=== PATIENT | male | born 1950 | race Caucasian/White ===

== ENCOUNTER → 2017-11-25 14:07 | Outpatient (CLI) | payer BC, SELFPAY ==
[2017-11-25 16:12] LABS: PSA,Total- Diagnostic < 0.01 ng/mL (0.0-4.0)
== END ==
PROVIDERS: Family Provider Family Medicine; PCP Family Medicine; Referring Provider Urology; Visit Provider Urology
DX: C61 Malignant neoplasm of prostate (principal)
CPT/HCPCS: 36415; 84153

== ENCOUNTER → 2020-02-22 17:04 | Outpatient (CLI) | payer BC, MEDICARE, SELFPAY ==
[2017-01-23 06:28] VITALS: BMI 32.7
--- NOTE | 2020-02-22 17:14 | CT_ITS ---
STUDY: CT ABDOMEN AND PELVIS WITHOUT CONTRAST REASON FOR EXAM: Male, 69 years old. RLQ PAIN RADIATION DOSAGE (If Supplied By Facility): CTDIvol = ( 14.70 ) mGy, DLP = ( 831.35 ) mGycm TECHNIQUE: Transaxial images were obtained from the dome of the diaphragm to the symphysis pubis without oral contrast, and without intravenous contrast. Sagittal and coronal images were reconstructed. Individualized dose optimization techniques were used for this CT. COMPARISON: None. FINDINGS: The visualized lung bases are unremarkable aside from a stable pneumatocele in the right lung base. The visualized portions of the heart are within normal limits. Liver is unremarkable aside from a stable 1 cm likely hemangioma or cyst in the right lower lobe Normal gallbladder and extrahepatic biliary system. Normal spleen. Normal pancreas. Normal bilateral adrenal glands. Normal right kidney. Normal left kidney. Normal visualized stomach. Normal small intestine. Normal colon. The proximal half of the appendix is within normal range however, the distal appendix seen on axial images 144 to 158 is thick walled and fluid distended measuring 1.8 cm in thickness with periappendiceal inflammation. No demonstrated abscess there may be a few bubbles of microperforation. It is also possible that this may represent an acute diverticulitis though no significant diverticular disease is noted in the colon. Normal abdominal aorta. Normal inferior vena cava. Normal retroperitoneum. Normal urinary bladder. Normal abdominal wall. There are diffuse degenerative changes of the visualized lumbar spine, and pelvis CT/Abdomen/Pelvis without Cont IMPRESSION: Acute appendicitis suspected involving the distal half of the appendix. There is periappendiceal inflammation and a few bubbles of microperforation are suspected Stable hemangioma or cyst in the right lobe of the liver Study was ordered as an outpatient. However, the patient was not sent home by the CT techs who were then called by me to discuss the findings. The covering SPLINE ROLLING MACHINE JOB SETTER was then called by the CT techs with the report. N.B. : The above information has been verbally conveyed by Praful Perez MD to Teresa Carmona NP, on 02/22/2020 18:41:36 (ET). Electronically Signed: Praful Perez MD at 18:44 EST , Service support ,
== END ==
PROVIDERS: PCP Family Medicine; Referring Provider Nurse Practitioner Adult Health; Visit Provider Nurse Practitioner Adult Health
DX: R10.9 Unspecified abdominal pain (principal); R31.29 Other microscopic hematuria; Z87.442 Personal history of urinary calculi
CPT/HCPCS: 74176

== ENCOUNTER 2020-02-22 18:49 | Observation (INO) | payer MEDICARE, BC, SELFPAY ==
[2020-02-22] VITALS (8 sets, daily range): BP systolic 116–155; BP diastolic 68–87; PULSE 76–99; RESP 16–18; TEMP 36.1–37.3; O2SAT 94–100; BMI 32.5; BMI 29.2
[2020-02-22] MEDS: 0.9% Normal Saline 1,000 ML 125 ML IV (18:55)
--- NOTE | 2020-02-22 18:55 | EKG12_ITS ---
Test Reason : ABD PAIN Blood Pressure : / mmHG Vent. Rate : 093 BPM Atrial Rate : 093 BPM P-R Int : 162 ms QRS Dur : 104 ms QT Int : 344 ms P-R-T Axes : 049 103 054 degrees QTc Int : 427 ms Normal sinus rhythm Incomplete right bundle branch block Nonspecific ST abnormality Abnormal ECG Confirmed by KAREN LEWIS, FAZAL ([id number]), editor department CHRIS STANTON ([id number]) on 02/24/2020 9:41:32 AM Referred By: PAZ Confirmed By:FAZAL JONES MD
--- NOTE | 2020-02-22 18:58 | ED.VIS.GEN ---
History of Present Illness Chief Complaint: Abd Pain Informant: Patient Onset: Days Context: Gradual Onset Timing: Continuous Current Severity: Moderate Maximum Severity: Moderate Narrative: Patient is a 69-year-old male with medical history significant for prior prostate cancer, status post robotic prostatectomy in 2017, who presents to the emergency department abdominal pain. Patient states that he thought that he had a kidney stone. His symptoms began on Saturday. He states he had some diffuse abdominal pain that seemed to migrate to his right lower quadrant. He did have some chills on the first day, but nothing since. He had an outpatient CT done today. This was consistent with evidence of appendicitis. This patient was sent here for further evaluation. He is not on anticoagulants. He denies any other systemic symptoms. He states that aside from the pain, is otherwise been in his normal state of health. Prior similar symptoms: No Recent Illness/Hospitalization: No Past Medical History - Allergies and Home Meds Allergies/Adverse Reactions: Allergies Penicillins Allergy (Verified 12/26/16 14:51) Unknown Sulfa (Sulfonamide Antibiotics) Allergy (Verified 12/26/16 14:51) Unknown Primary Care Physician: Francisco Gee MD [Primary Care Provider] - Prior records reviewed: Yes Past Medical History: - - History of prostate cancer Surgical History: - - Prostatectomy Lives: With Family Smoking Status: Former smoker Review of Systems General: Denies: Chills, Fever, Sweats Eyes: Denies: Visual changes - bilaterally, Diplopia ENT: Denies: Rhinorrhea, Sore throat Cardiovascular: Denies: Chest pain, Palpitations Respiratory: Denies: Dyspnea, Cough, Dyspnea on exertion Gastrointestinal: Reports: Abdominal pain. Denies: Nausea, Vomiting, Diarrhea, Melena, Hematochezia Genitourinary: Denies: Dysuria, Hematuria, Frequency Musculoskeletal: Denies: Back pain, Extremity Pain Skin: Denies: Rash, Wounds Neurological: Denies: Headache, Weakness, Numbness Physical Exam Vital Signs/Narrative: Vital Signs Temp Pulse Resp BP Pulse Ox 02/22/20 18:51 97 F L 99 16 155/85 H 100 02/22/20 18:50 97 F L 99 16 155/85 H 100 Inital Vital Signs reviewed: Yes General: Well nourished, Well developed, No Acute Distress Head: Normocephalic, Atraumatic Eyes: Perrl, EOMI ENT: Moist mucous membranes, No rhinorrhea Neck: Supple, Nontender Cardiovascular: Regular rate, Regular rhythm, No murmurs Respiratory: No distress, CTA bilaterally, Chest nontender Abdomen: Soft, Nondistended, Normal bowel sounds, Tender. Negative for: Guarding, Rebound tenderness Back: Nontender, Normal Inspection Extremities: Nontender, No edema Skin: Normal color, No rash Neurological: Alert, Oriented x3, Cranial nerves II-XII grossly intact, Normal Strength, Normal Sensation Psychological: Normal affect, Normal Mood Diagnostic/Tx/Re-eval - Rhythm Strip Rhythm Strip: Sinus Rhythm Rate: 80 Ectopy: None - EKG Initial EKG Interpretation: Sinus Rhythm, No Acute Injury Pattern - Medical Decision Making The patient presents with an outpatient CT does does confirm acute appendicitis. I discussed this immediately with surgery. Metabolic work-up was pursued. The patient was covered with broad-spectrum antibiotics. The plan is for him to go to the OR for appendectomy. The patient is agreeable with this plan. Impression 1. Acute appendicitis ED Disposition - Plan for ED Patient: Referrals: Francisco Gee MD [Primary Care Provider] -
--- NOTE | 2020-02-22 19:26 | RAD_ITS ---
STUDY: X-RAY CHEST REASON FOR EXAM: Male, 69 years old. PRE-OP APPY. TECHNIQUE: Single AP portable view of the chest. COMPARISON: None. FINDINGS: The lungs are clear and expanded. There is no demonstrated pleural abnormality. Normal size heart. Normal mediastinum and mariangel. Normal visualized pulmonary arteries. Normal visualized aortic arch and descending thoracic aorta. There are diffuse degenerative changes of the visualized thoracic spine. Normal visualized ribs, clavicles, and shoulders. There is no demonstrated abnormality of the visualized soft tissue structures of the upper abdomen. RAD/Chest 1 View (Portable) IMPRESSION: No acute pulmonary process Electronically Signed: Praful Perez MD at 20:26 EST , Service support ,
--- NOTE | 2020-02-22 19:28 | HP.PCM_ITS ---
History of Present Illness Date of Admission: 02/22/20 The patient is a 69 year old M presented to the ER after having outpatient CT which showed acute appendicitis. Patient states last Saturday he had some right-sided abdominal pain which did go away as well as on Saturday. However last night and initially started periumbilical and then went to the right lower quadrant patient did have an outpatient CT ordered by his urologist as he has had a previous history of a kidney stone. Current lab work is pending. Patient last ate at 11:00 today. Past Medical History Allergies Penicillins Allergy (Verified 12/26/16 14:51) Unknown Sulfa (Sulfonamide Antibiotics) Allergy (Verified 12/26/16 14:51) Unknown Home Medications: Ambulatory Orders Medication Instructions Recorded Ascorbic Acid [Vitamin C] 2,000 mg PO DAILY 12/26/16 Loratadine [Claritin] 10 mg PO DAILY 12/26/16 Surgical History: - - Robotic prostatectomy 2016, colonoscopy in 2012 - Psychiatric History: No pertinent psych hx Lives: With Family Smoking Status: Former smoker Alcohol: None Drugs: None - *Family History Maternal History Items: No pertinent history VTE Information - Inpt Only VTE Present on Admission: Yes VTE Mechan Device Prophylaxis: SCD's - Physical Exam Vitals/I&O's: Vital Signs Temp Pulse Resp BP Pulse Ox 97 F L 99 16 155/85 H 100 02/22/20 18:51 02/22/20 18:51 02/22/20 18:51 02/22/20 18:51 02/22/20 18:51 Weight: 247 lb Body Mass Index (BMI) 32.5 General: Alert, Oriented x3, Cooperative, No apparent distress HEENT: Atraumatic Lungs: Normal air movement Cardiovascular: Regular rate Abdomen: Soft, Non-Distended, Tender - Right lower quadrant, no peritoneal signs Extremities: No clubbing, No cyanosis, No edema Neurological: Cranial nerves II-XII grossly intact Psych/Mental Status: Normal Affect Laboratory Results 02/22/20 19:15: WBC Pending, RBC Pending, Hgb Pending, Hct Pending, MCV Pending, MCH Pending, MCHC Pending, RDW Std Deviation Pending, RDW Coeff of Latha Pending, Plt Count Pending, Neut % (Auto) Pending, Absolute Neuts (auto) Pending 02/22/20 19:15: Sodium Pending, Potassium Pending, Chloride Pending, Carbon Dioxide Pending, Anion Gap Pending, BUN Pending, Creatinine Pending, Est GFR (MDRD) Af Amer Pending, Est GFR (MDRD) Non-Af Pending, BUN/Creatinine Ratio Pending, Glucose Pending, Calcium Pending, Total Bilirubin Pending, AST Pending, ALT Pending, Alkaline Phosphatase Pending, Total Protein Pending, Albumin Pending 02/22/20 19:15: Blood Type Pending, Antibody Screen Pending Current Medications Sodium Chloride () 1,000 mls @ 125 mls/hr IV .Q8H KAYLI Ciprofloxacin (Cipro) 400 mg in 200 mls @ 200 mls/hr IV X1 ONE Stop: 02/22/20 20:00 Metronidazole (Flagyl) 500 mg in 100 mls @ 100 mls/hr IV X1 ONE Stop: 02/22/20 20:00 Assessment/Plan All Active Problems Prostate cancer (Acute) 69-year-old male with acute appendicitis 1. Discussed procedure laparoscopic appendectomy, possible open, possible bowel resection along with the risk but not limited to bleeding, infection/abscess, injury to another organ (small bowel, colon, etc.), adhesion, hernia at incision sites, and anesthesia. Patient no further questions this time. Patient did get Cipro and Flagyl IV in the ER. Covid test is pending. Dayana Anderson M.D. Pager: [phone] [facility] [address] [place] [address], [address] [place] [address] Office: [phone]
--- NOTE | 2020-02-22 19:28 | ED.RN ---
PT TO OR PRIOR TO MEDS ADMIN. ED STAFF TOOK ATB TO OR.
[2020-02-22] MEDS: Ciprofloxacin 400 MG/200 ML BAG 200 MG IV (19:36)
[2020-02-22 19:39] LABS: Absolute Lymphocyte Count 1.15 X10^3/uL (0.83-4.51); Absolute Neutrophil Count 8.2 X10^3/uL (2.0-7.7); Basophil# 0.02 X10^3/uL; Basophil% 0.2 % (0-1); Eosinophil# 0.05 X10^3/uL; Eosinophils% 0.5 % (0-5); Lymphocyte # 1.15 X10^3/ul (4.0); Lymphocyte % 11.2 % (19-41); Mean Corp Hgb Conc 31.9 g/dL (32-36); Mean Corpuscular Volume 81.3 fL (80-94); Mean Platelet Vol. 8.7 fl (6.2-12.0); Monocyte% 7.8 % (0-10); NRBC Flagged by Analyzer 0 % (0-5); Neutrophil # 8.21 X10^3/uL (2.7-7.7); Platelet Count 204 K/mm3 (150-450); RBC Distribution Width CV 13.2 % (11.6-14.6); RBC Distribution Width SD 38.5 fl (35.1-43.9); Red Blood Count 5.78 M/mm3 (4.6-6.2); White Blood Count 10.3 K/mm3 (4.4-11.0)
[2020-02-22 19:54] LABS: ALB/GLOB Ratio 1.1 RATIO (0.9-2.4); AST(SGOT) 5 U/L (15-37); Alanine Aminotransfer ALT/SGPT 16 U/L (16-61); Albumin, Serum 3.7 g/dL (3.2-5.0); Alkaline Phosphatase 79 U/L (45-117); Anion Gap 7 (5-15); BUN 13 mg/dL (7-18); BUN/Creat Ratio 11.9 RATIO (10-20); Calcium,Total 8.8 mg/dL (8.5-10.1); Chloride 105 mmol/L (98-107); Creatinine, Serum 1.09 mg/dL (0.70-1.30); EST Glomerular Filtration Rate 71 mL/min (>60); Est Glom Filt Rate - Afr Amer 86 mL/min (>60); Estimated Creatinine Clearance 72.28 ml/min; Globulin 3.3 g/dL (2.2-4.2); Glucose 110 mg/dL (74-106); Potassium 3.4 mmol/L (3.5-5.1); Sodium Level 139 mmol/L (136-145)
[2020-02-22] MEDS: metroNIDAZOLE 500 MG/100 ML BAG 100 MG IV (20:29)
[2020-02-22] MEDS: Lactated Ringers 1,000 ML 100 ML IV (21:00)
[2020-02-22] MEDS: Bupiv/Epi 0.5% Mpf 30 ML Vial (21:30)
--- NOTE | 2020-02-22 21:36 | PCM.OPRPT ---
Report of Operation Date of Procedure: 02/22/20 Pre-Operative Diagnosis: acute appendicitis Post-Operative Diagnosis: acute perforated appendicitis Surgery/Procedure Performed:: laparoscopic appendectomy Type of Anesthesia:: General/Supplemental Anesthesiologist: Yovany Downey Special Medications: cipro/flagyl Specimen's removed: appendix Estimated Blood Loss (mL): 10 cc Fluids Replaced: 1.200 Liter Description of Procedure: Indications: 69-year-old male presented to the ER with new right lower quadrant pain last night. On workup he was found to have acute appendicitis on CT. Patient was started on antibiotics in the ER for acute appendicitis-Cipro/Flagyl IV. Description of the procedure: The patient was placed on operating table in supine position. General anesthesia was induced. A timeout was completed verifying correct patient, procedure, position and special equipment prior to beginning procedure. Abdomen was prepped and draped in usual sterile fashion. Incision was made in the natural skin line above the umbilicus with a 15 blade scalpel. The fascia was elevated and incised. Entry into the peritoneum was confirmed visually and no bowel was noted in the vicinity of the incision. The Escoto trocar was placed under direct vision. Abdomen insufflated with a pressure of 12-15 mmHg. Patient tolerated insertion well. The scope was inserted and the abdomen inspected. No injuries from initial trocar placement were noted. Minimal amount of fluid was seen in the right lower quadrant. An direct visualization 2 -5 mm trocars were placed one above the symphysis pubis and below the hairline and one in the left lower quadrant lateral to the rectus muscle. Care is taken to avoid injury to the bladder and inferior epigastric vessels. The table was placed in Trendelenburg position with the right side elevated. The appendix was grasped with atraumatic grasper and elevated. It was noted to be inflamed at the tip and mid appendix and some purulent material was seen in the pelvis, this was suctioned. A window was developed in the mesoappendix at the point between the base of the appendix and the cecum. An endoscopic 45 mm linear cutting stapler blue load was then used to divide and staple the base of the appendix. Enseal was used to divide the mesoappendix. The appendix was withdrawn into the Escoto trocar after being placed endoscopically retrieval bag. Appendix was sent to pathology. The appendiceal stump was then irrigated and hemostasis was assured. Purulent fluid was suctioned. Secondary trochars were removed under direct visualization. No bleeding was noted trocar sites. The laparoscope withdrawn and the umbilical trocar removed. The abdomen was allowed to collapse. Local anesthesia of 15 mL of 0.5% Marcaine was used at the incision sites. The umbilical trocar site was closed with the [id number] 0 Vicryl suture. The skin was closed up to clear sutures of 4-0 Monocryl and Steri-Strips. The patient was extubated. The patient tolerated the procedure well and was taken to the postanesthesia care unit in satisfactory condition. - Complications none
--- NOTE | 2020-02-23 | APP_PTH ---
PATIENT: MIGUE CHAIDEZ LOC: MS3 U#:[id number] AGE/SX: 69/M ROOM: [facility] RE02/22/[address]: Dr. Dayana Anderson MD : 1950 BED: 1 DIS: 02/23/2020 SPEC #: [id number] RECD: 02/23/20 08:19 STATUS: PURA REMary #: [id number] LOUANN: 02/23/20 00:[address]: Dayana Anderson DEPT: SURGICAL PATHOLOGY RECD BY: Khalif Willis ENTERED: 02/23/20 08:19 SP TYPE: APPENDIX OTHR DR: Dr. Francisco Gee MD Tissues: Appendix, NOS Procedures: Surgery Specimen Level III HEADER OPERATION: Laparoscopic appendectomy PRE-OP DIAGNOSIS: Appendicitis TISSUE SUBMITTED: Appendix MICROSCOPIC DIAGNOSIS Appendix, appendectomy: Mild acute appendicitis and marked acute periappendicitis. Focal hyperplastic changes. See comment. SJ:cayla 02/25/2020 COMMENT Acute Inflammation and abscess formation are noted predominantly is present in the periappendiceal adipose tissue. Focal area suspicious for diverticular changes are noted. Findings may represent ruptured diverticulum. Entire appendix is examined Case has been reviewed in consultation with Dr. Bermudez who concurs with the above diagnosis. IDC:AM MICROSCOPIC DESCRIPTION Slides are reviewed. GROSS DESCRIPTION Received in fixative is one container labeled with the patient's name and designated appendix. The specimen consists of a C-shaped appendix measuring 10 cm in length and up to 1 cm in diameter. The attached periappendiceal adipose tissue measures up to 3 cm in width. Fibrinopurulent exudate is noted close to the tip of the appendix. No obvious perforation is noted. The lumen does not contain any fecalith. No mass lesion is identified. Sheet Taker sections are submitted in one cassette. / SJ:cayla 02/23/2020 The rest of the appendix is submitted in five more cassettes, 2-6. / SJ:cayla 02/24/2020 TC:2 CPT: 42294
[2020-02-23 00:37] VITALS: BP 128/85; PULSE 88; RESP 18; TEMP 37; O2SAT 96; BMI 29.2
[2020-02-23 02:37] VITALS: BP 126/82; PULSE 93; RESP 16; TEMP 36.9; O2SAT 95; BMI 29.2
[2020-02-23] MEDS: Lactated Ringers 1,000 ML 100 ML IV (03:59)
[2020-02-23 06:20] VITALS: BMI 29.2
--- NOTE | 2020-02-23 07:52 | DCINST_ITS ---
Discharge Diet: Light diet - advance as tolerated Discharge Activity: May not drive while taking narcotic pain medications. May shower in (days): 1 - from surgery Lifting Restrictions: no lifting <20 lb x 2 wks, no strenous exercise for 5 wks Call your doctor if your incision/area has: Continuous Slow Oozing, Sudden Increased Bleeding, Increased Pain/ Swelling, Increased Redness, Foul Smelling Discharge, Swelling at the incision site Call your doctor if you observe: Fever of 101 or Higher Medications to take at Discharge Ascorbic Acid [Vitamin C] 2,000 mg PO DAILY 12/26/16 Loratadine [Claritin] 10 mg PO DAILY 12/26/16 Airborne Chewable Tablet 750 mg TID 02/22/20 Allergies/Adverse Reactions: Allergies Penicillins Allergy (Verified 12/26/16 14:51) Unknown Sulfa (Sulfonamide Antibiotics) Allergy (Verified 12/26/16 14:51) Unknown Primary Care Physician: Francisco Gee MD [Primary Care Provider] - Test Results: Test results from this visit will be discussed in further detail at your follow- up appointment, if applicable. Please Follow Up With: Dayana Anderson MD - After 5pm and on weekends call [phone] w any concerns When: call office for f/u in 2 weeks [phone] Proposed Discharge Date: 02/23/20
[2020-02-23 07:54] VITALS: BP 125/72; PULSE 86; RESP 16; TEMP 37; O2SAT 94
--- NOTE | 2020-02-23 08:25 | PCM.PN.SRG ---
Subjective: Patient evaluated resting comfortably in the chair. He notes very minimal amount of abdominal discomfort. Denies nausea, vomiting. Tolerating diet. Urinating well. Positive flatus. - Physical Exam Vitals/I&O's: Vital Signs Temp Pulse Resp BP Pulse Ox 98.6 F 86 16 125/72 H 94 02/23/20 07:54 02/23/20 07:54 02/23/20 07:54 02/23/20 07:54 02/23/20 07:54 Oxygen Delivery Method Room Air Weight: 221 lb 5.506 oz Body Mass Index (BMI) 29.2 Intake and Output for Last 24 Hours 02/21/20 02/22/20 02/23/20 23:59 23:59 23:59 Intake Total 1300 / 1400 1298.33 / 1298.33 Output Total 1300 / 1300 Balance 1300 / 950 -1.67 / -1.67 General: Alert, Oriented x3, Cooperative Abdomen: Bowel Sounds Present, Soft, Non Tender, - - Incisions c/d/i. No erythema or infection noted. Microbiology Past 72 Hours 02/22/20 19:10 Mucosa - Nasopharyngeal SARS-CoV-2 Antigen (Rapid) - Final Laboratory Results 02/22/20 19:15: WBC 10.3, RBC 5.78, Hgb 15.0, Hct 47.0, MCV 81.3, MCH 26.0 L, MCHC 31.9 L, RDW Std Deviation 38.5, RDW Coeff of Latha 13.2, Plt Count 204, MPV 8.7, Immature Gran % (Auto) 0.300, Neut % (Auto) 80.0 H, Lymph % (Auto) 11.2 L, [place] % (Auto) 7.8, Eos % (Auto) 0.5, Baso % (Auto) 0.2, Absolute Neuts (auto) 8.2 H, Absolute Lymphs (auto) 1.15, Nucleated RBC % 0 02/22/20 19:15: Sodium 139, Potassium 3.4 L, Chloride 105, Carbon Dioxide 27.0, Anion Gap 7, BUN 13, Creatinine 1.09, Estim Creat Clear Calc 72.28, Est GFR (MDRD) Af Amer 86, Est GFR (MDRD) Non-Af 71, BUN/Creatinine Ratio 11.9, Glucose 110 H, Calcium 8.8, Total Bilirubin 1.90 H, AST 5 L, ALT 16, Alkaline Phosphatase 79, Total Protein 7.0, Albumin 3.7, Globulin 3.3, Albumin/Globulin Ratio 1.1 02/22/20 19:15: Blood Type B POSITIVE, Antibody Screen NEGATIVE Current Medications Acetaminophen (Acetaminophen 325 Mg Tablet) 650 mg PO Q6H PRN PRN PRN Reason: Pain Score 1-10 Lactated Ringer's () 1,000 mls @ 100 mls/hr IV .Q10H KAYLI Last Admin: 02/23/20 03:59 Dose: 100 mls/hr Documented by: Morphine Sulfate (Morphine 2 Mg/Ml Syringe) 2 - 4 mg IV Q2H PRN PRN PRN Reason: Pain Score 1-10 Ondansetron HCl (Ondansetron 4 Mg/2 Ml Vial) 4 mg IV Q8H PRN PRN PRN Reason: NAUSEA Oxycodone HCl (Oxycodone 5 Mg Tablet) 5 - 10 mg PO Q4H PRN PRN PRN Reason: Pain Score 1-10 Sodium Chloride (0.9% Saline Lock 10 Ml Syringe) 10 - 40 ml IV UD PRN PRN Reason: SALINE FLUSH Medical Necessity - Tobacco Use Smoking Status: Former smoker Assessment/Plan All Active Problems Prostate cancer (Acute) I am following this patient in conjunction with Dr. Anderson. Impression: S/p Laparoscopic appendectomy Ready for discharge Instructions reviewed and questions answered Inpatient E&M: 63415 Subs Hosp L1 - NO charge
[2020-02-23 10:40] VITALS: BP 125/68; PULSE 79; RESP 16; TEMP 37.1; O2SAT 98
== END 2020-02-23 11:16 | disposition home or self-care (01) ==
LOC: ED 19:32 → SDC 19:36 → MS3 20:28 → SDC 02-23 13:33 → MS3 02-23 13:34
PROVIDERS: Admitting Provider Surgery; Emergency Provider Emergency Medicine; PCP Family Medicine; Visit Provider Surgery
PROC: 0DTJ4ZZ Resection of Appendix, Percutaneous Endoscopic Approach (ICD-10-PCS; CPT 44970; principal; 2020-02-22 20:00)
DX: K35.32 Acute appendicitis with perforation, localized peritonitis, and gangrene, without abscess (principal); Z85.46 Personal history of malignant neoplasm of prostate; Z87.891 Personal history of nicotine dependence; I45.10 Unspecified right bundle-branch block
CPT/HCPCS: 44970; 71045; 74176; 80053; 85025; 86850; 86900; 86901; 87426; 88304; 93005; 96360; 96361; 99218; 99251; 99284; J7030; J7120; A4216; C1760; G0378; G0463; J0744; J2405